=== PATIENT | female | born 1950 | race Hispanic/Latino ===

== ENCOUNTER 2016-12-03 17:30 | Inpatient (IN) | payer MEDICARE ==
[2016-12-03] MEDS ORDERED: MILK OF MAGNESIA PO PRN (18:07)
[2016-12-03] MEDS ORDERED: SENOKOT PO PRN (18:07)
[2016-12-03] MEDS: NAPROSYN PO SCH (21:19)
[2016-12-03] MEDS: PERCOCET 5/325 PO PRN (21:20)
[2016-12-03] MEDS: ASPIRIN PO SCH (21:20)
[2016-12-03] MEDS: BENADRYL PO PRN (22:06)
[2016-12-04 05:27] LABS: Hematocrit 29.3 % (30.3-42.9); Hemoglobin 9.4 gm/dl (10.1-14.3); Mean Corpuscular HGB Conc 32 % (30-34); Mean Corpuscular Hemoglobin 27 pg (28-32); Mean Corpuscular Volume 84 fl (79-97); Platelet Count 440 K/mm3 (140-440); Red Blood Count 3.49 M/mm3 (3.65-5.03); White Blood Count 17.6 K/mm3 (4.5-11.0)
[2016-12-04 05:33] LABS: Alanine Aminotransferase 11 units/L (7-56); Albumin 2.9 g/dL (3.9-5); Alkaline Phosphatase 109 units/L (35-129); BUN/Creatinine Ratio 21.25; Bilirubin,Total 0.6 mg/dL (0.1-1.2); Blood Urea Nitrogen 17 mg/dL (7-17); Calcium 8.7 mg/dL (8.4-10.2); Carbon Dioxide 30 mmol/L (22-30); Glucose 98 mg/dL (65-100); Total Protein 5.9 g/dL (6.3-8.2)
[2016-12-04 05:34] LABS: Chloride 99.7 mmol/L (98-107); Potassium 4.8 mmol/L (3.6-5.0); Sodium 142 mmol/L (137-145)
[2016-12-04 05:35] LABS: Anion Gap 17 mmol/L
[2016-12-04] MEDS: PERCOCET 5/325 PO PRN ×4 (05:54→21:32)
[2016-12-04] MEDS: BENADRYL PO PRN ×3 (05:54→19:28)
[2016-12-04 07:00] LABS: Blastocytes % (Manual) 0 %
[2016-12-04 07:03] LABS: Anisocytosis 1+; Polychromasia Few; Stomatocytes 1+
[2016-12-04 07:04] LABS: Diff Status Complete; Hypersegmented Neutrophils Few
[2016-12-04] MEDS: NAPROSYN PO SCH ×2 (08:46→21:30)
[2016-12-04] MEDS: ASPIRIN PO SCH ×2 (08:47→21:30)
[2016-12-04] MEDS: LASIX PO SCH (08:48)
[2016-12-04] MEDS: PROzac PO SCH (08:48)
--- NOTE | 2016-12-04 10:22 | History and Physical Report ---
History of Present Illness Date: 12/04/16 Referring Facility: [facility] Date of admission: 12/03/16 17:30 Chief Complaint: Right TKA revision History of present illness: POST ADMISSION PHYSICIAN EVALUATION ONSET DATE: 11/26/2016 IMPAIRMENT GROUP CODE: 08.61 ETIOLOGIC DIAGNOSIS: right total knee revision STATUS CHANGES SINCE PREADMISSION SCREENING: PAS has been reviewed. In comparison, pt is with increased pain on this AM as she is actively with PT at time of exam. Pt continues to have functional deficits following TKA; leukocytosis noted on today, however, remains afebrile without any infectious complaints. Pt remains an appropriate candidate for IPR course. PREVIOUS FUNCTIONAL STATUS: Independent with ADLs, gait, transfers CURRENT FUNCTIONAL STATUS: per PAS, s/u to [facility] for ADLs; CGA-SBA for transfers ; CGA for gait with RW; functional updates per PT/OT evaluations to follow HPI 66 y.o. morbidly obese female admitted to [facility] for elective right total knee revision. Pt has a history of fall in March 2016 with progressively worsening pain and instability. Pt failed conservative treatment and was recommended for revision of right TKA. Post-op course significant for acute blood loss anemia and decline in functional independence; uncontrolled pain. Pt is now admitted for aggressive therapies and ongoing medical management. Past History Past Medical History: arthritis, cancer (CML, has refused to continue oral chemo ), hypertension, other (depression) Past Surgical History: hysterectomy, total knee replacement (bilateral), Other ( right annkle ORIF, right arm cyst removal, breast tumor resection) Social history: , lives with family. denies: smoking, alcohol abuse Family history: CAD, cancer Medications and Allergies Allergies Allergy/AdvReac Type Severity Reaction Status Date / Time adhesive tape Allergy Unknown Verified 12/03/16 18:16 latex Allergy Unknown Verified 12/03/16 18:16 morphine Allergy Unknown Verified 12/03/16 18:16 Penicillins Allergy Unknown Verified 12/03/16 18:16 Tetanus Vaccines & Toxoid Allergy Unknown Verified 12/03/16 18:16 Active Meds: Active Medications Aspirin (Aspirin) 325 mg PO BID [facility] Last Admin: 12/04/16 08:47 Dose: 325 mg Diphenhydramine HCl (Benadryl) 12.5 mg PO Q6H PRN PRN Reason: Itching Last Admin: 12/04/16 05:54 Dose: 12.5 mg Fluoxetine HCl (Prozac) 40 mg PO QDAY [facility] Last Admin: 12/04/16 08:48 Dose: 40 mg Furosemide (Lasix) 20 mg PO QDAY [facility] Last Admin: 12/04/16 08:48 Dose: 20 mg Magnesium Hydroxide (Milk Of Magnesia) 30 ml PO Q4H PRN PRN Reason: Constipation Naproxen (Naprosyn) 500 mg PO BID [facility] Last Admin: 12/04/16 08:46 Dose: 500 mg Oxycodone/Acetaminophen (Percocet 5/325) 2 tab PO Q6H PRN PRN Reason: Pain, Moderate (4-6) Last Admin: 12/04/16 05:54 Dose: 2 tab Senna (Senokot) 8.6 mg PO Q12H PRN PRN Reason: Laxative Effect Review of Systems All systems: negative Ears, nose, mouth and throat: no headache Cardiovascular: no chest pain, no lightheadedness Respiratory: shortness of breath (chronic) Gastrointestinal: no nausea, no vomiting, no constipation (last BM 2 days ago) Genitourinary Female: no dysuria, no urgency Musculoskeletal: other (right knee pain) Neurological: no parathesias Exam - Constitutional Vitals: Vital Signs - 12hr 12/03/16 12/03/16 12/04/16 23:00 23:55 08:00 Temperature 98.8 F 98.8 F 97.7 F Pulse Rate [ 86 70 From Monitor] Respiratory 18 18 20 Rate Blood Pressure 164/66 164/66 126/58 [Left Arm] O2 Sat by Pulse 90 90 Oximetry General appearance: mild distress (pain at right knee), obese - EENT Eyes: EOM intact ENT: hearing intact - Neck Neck: supple, normal ROM - Respiratory Respiratory effort: normal Respiratory: bilateral: CTA - Cardiovascular Rhythm: regular Heart Sounds: Present: S1 & S2 - Extremities Extremity abnormal: edema (right LE), other (bárbara in place to right knee; no active bleeding at incision; no redness) - Gastrointestinal General gastrointestinal: Present: soft, non-tender, non-distended, normal bowel sounds - Musculoskeletal Musculoskeletal: right sided weakness (RLE; intact ankle DF/PF; unable to initiate straight leg raise on mat) - Neurologic Neurologic: CNII-XII intact, other (sensation grossly intact) - Psychiatric Psychiatric: appropriate mood/affect, intact judgment & insight, memory intact, cooperative - Allied health notes FIMS assesment as documented by PT/OT/ST: Toileting Toileting FIM Score 5. Supervision Social interaction/Memory/Problem solving Social Interaction FIM Score 6. Modified [place] Memory FIM Score 6. Modified [place] Problem Solving FIM Score 6. Modified [place] Eating Eating FIM Score 7. Complete [place] - Labs CBC & Chem 7: 12/04/16 04:50 12/04/16 04:50 Labs: Laboratory Results - last 72 hr 12/04/16 12/04/16 04:50 04:50 WBC 17.6 H RBC 3.49 L Hgb 9.4 L Hct 29.3 L MCV 84 MCH 27 L MCHC 32 RDW 18.0 H Plt Count 440 Baso % (Auto) Prosthetic Dentist Add Manual Diff Complete Total Counted 100 Seg Neuts % (Manual) 43.0 Band Neutrophils % 19.0 Lymphocytes % (Manual) 16.0 Reactive Lymphs % (Man) 0 Monocytes % (Manual) 5.0 Eosinophils % (Manual) 6.0 H Basophils % (Manual) 3.0 H Metamyelocytes % 4.0 Myelocytes % 1.0 Promyelocytes % 3.0 Blast Cells % 0 Nucleated RBC % Not Reportable Seg Neutrophils # Man 7.6 Band Neutrophils # 3.3 Lymphocytes # (Manual) 2.8 Abs React Lymphs (Man) 0.0 Monocytes # (Manual) 0.9 H Eosinophils # (Manual) 1.1 H Basophils # (Manual) 0.5 H Metamyelocytes # 0.7 Myelocytes # 0.2 Promyelocytes # 0.5 Blast Cells # 0.0 WBC Morphology Not Reportable Hypersegmented Neuts Few Hyposegmented Neuts Not Reportable Hypogranular Neuts Not Reportable Smudge Cells Not Reportable Toxic Granulation Not Reportable Toxic Vacuolation Not Reportable Dohle Bodies Not Reportable Pelger-Huet Anomaly Not Reportable Ari[place] Rods Not Reportable Platelet Estimate Appears normal Clumped Platelets Not Reportable Plt Clumps, EDTA Not Reportable Large Platelets Not Reportable Giant Platelets Not Reportable Platelet Satelliting Not Reportable Plt Morphology Comment Not Reportable RBC Morphology Not Reportable Dimorphic RBCs Not Reportable Polychromasia Few Hypochromasia Not Reportable Poikilocytosis Not Reportable Anisocytosis 1+ Microcytosis Not Reportable Macrocytosis Not Reportable Spherocytes Not Reportable Pappenheimer Bodies Not Reportable Sickle Cells Not Reportable Target Cells Not Reportable Tear Drop Cells Not Reportable Ovalocytes Not Reportable Stomatocytes 1+ Helmet Cells Not Reportable [place] Bodies Not Reportable [place] Rings Not Reportable [place] Cells Not Reportable Bite Cells Not Reportable Crenated Cell Not Reportable Elliptocytes Not Reportable Acanthocytes (Spur) Not Reportable Rouleaux Not Reportable Hemoglobin C Crystals Not Reportable Schistocytes Not Reportable Malaria parasites Not Reportable Steve Bodies Not Reportable Hem Pathologist Commnt No Sodium 142 Potassium 4.8 Chloride 99.7 Carbon Dioxide 30 Anion Gap 17 BUN 17 Creatinine 0.8 Estimated GFR > 60 BUN/Creatinine Ratio 21.25 Glucose 98 Calcium 8.7 Total Bilirubin 0.6 AST 17 ALT 11 Alkaline Phosphatase 109 Total Protein 5.9 L Albumin 2.9 L Albumin/Globulin Ratio 1.0 Assessment and Plan Assessment and plan: 66 y.o. morbidly obese female s/p right TKA revision secondary to failed hardware; post-op anemia and uncontrolled pain; gait instability. The patient is medically stable, however, requires ongoing medical management. Pt is appropriate for inpatient rehabilitation admission and is thought to be able to tolerate at least 3 hours of therapy a day, 5 days a week including 1.5 hours of physical therapy and 1.5 hours of occupational therapy. Patient is able to understand and follow basic directions and has attainable rehab goals. Potential barriers/complications include infection, wound dehiscence, DVT, PE, falls, respiratory distress, hypotension, syncope. Plan 1. Rehabilitation- Pt will undergo multidisciplinary/integrative rehab PT/OT, Nursing. Areas to be addressed include, but are not limited to PT for mobility , strengthening, transfer training, ROM, endurance, stairs, balance; OT for ADLs , household tasks, adaptive equipment; Nursing for carryover of therapies, pain control, education, skin integrity, medication management, bowel/bladder management; Nutrition as needed; procurement services manager for discharge planning and equipment needs. Potential interventions include appropriate assistive device or adaptive equipment. Expected overall level of functional improvement by discharge is [facility] for ADLs, transfers, and gait. Pt will tentatively be discharged home with outpatient PT. Estimated length of stay is 7-10 days. 2. s/p right TKA revision- pain med interval modified to Q4 from Q6; continue to follow; aggressive PT/OT for ROM, strengthening, gait/balance training, self cares; Knee immobilizer when out of bed 3. acute blood loss anemia- follow 4. leukocytosis- follow; check UA, C&S; no signs/symptoms of active infection at incision line; pt is afebrile 5. CML- aware; on chronic oxygen 6. depression- Continue prozac 7. DVT px- ASA BID as per Ortho - Patient Problems (1) Failed total right knee replacement Current Visit: Yes Status: Acute Qualifiers: Encounter type: initial encounter Qualified Code(s): T84.012A - Broken internal right knee prosthesis, initial encounter (2) Status post revision of total replacement of right knee Current Visit: Yes Status: Acute (3) Acute blood loss anemia Current Visit: Yes Status: Acute (4) Unsteady gait Current Visit: Yes Status: Acute (5) CML (chronic myelocytic leukemia) Current Visit: Yes Status: Acute (6) Depression Current Visit: Yes Status: Acute Qualifiers: Depression Type: major depressive disorder Major depression recurrence: single episode Active/Remission status: currently active Psychotic features : without psychotic features
[2016-12-04 18:03] LABS: Bilirubin,Urine NEG (Negative); Blood,Urine NEG (Negative); Ketones,Urine NEG (Negative); Leukocyte Esterase,Urine NEG (Negative); Nitrite,Urine POS (Negative); Protein,Urine <15 mg/dL mg/dL (Negative); Urobilinogen,Urine < 2.0 mg/dL (<2.0)
[2016-12-04 18:13] LABS: RBC,Urine < 1.0 /HPF (0.0-6.0)
[2016-12-05] MEDS: PROzac PO SCH (09:50)
[2016-12-05] MEDS: ASPIRIN PO SCH ×2 (09:50→21:38)
[2016-12-05] MEDS: NAPROSYN PO SCH ×2 (09:50→21:38)
[2016-12-05] MEDS: PERCOCET 5/325 PO PRN ×3 (09:51→20:04)
[2016-12-05] MEDS: LASIX PO SCH (09:53)
[2016-12-05] MEDS: BENADRYL PO PRN ×2 (09:56→20:05)
--- NOTE | 2016-12-05 13:55 | IRU Plan of Care ---
Interdisciplinary Plan of Care - IP IRU INTERDISCIPLINARY PLAN: [facility] Inpatient Rehab Unit Plan of Care IRU Interdisciplinary Care Plan Start: 12/03/16 18: 21 Freq: Admission then PRN Status: Active Document 12/04/16 18:16 DB (Rec: 12/04/16 18:22 DB [id number]) Interdisciplinary Problem List Interdisciplinary Problem List Interdisciplinary Problem List Impaired Bathing/Grooming Query Text:Answers will Trigger Problems Impaired Dressing and Outcomes on Worklist. Impaired Mobility Impaired Transfers Impaired Toileting Impaired Nutrition Pain Management Knowledge Deficits Impaired Skin/Tissue Integrity Impaired Home Management Impaired Safety Medications Education Impaired Oxygenation IRU Interdisciplinary Care Plan Therapy Services Therapy Services Will Include: Physical Therapy Query Text:Patient will be seen for a Occupational Therapy minimum of 3 hours of daily therapy 5 out of 7 days a week. Therapy intensity may be adjusted within a 7 consecutive day period to effectively serve the individual needs of the patient. Treatment Frequency/Intensity/Duration Treatment Frequency 5 days per week Treatment Intensity 1.5 hours per discipline (PT/OT ) daily Treatment Duration 7-10 days Problem Area: Eating/Swallowing Eating/Swallowing Outcomes Eating/Swallowing Interventions Problem Area: Bathing/Grooming Bathing/Grooming Outcomes Improve [place] w/ Grooming Improve [place] w/ Bathing Bathing/Grooming Interventions ADL Training Balance Work Activity Tolerance Work Patient/Caregiver Education Problem Area: Dressing Dressing Outcomes Improve [place] w/ UB Dressing Improve [place] w/ LB Dressing Dressing Interventions ADL Training Therapeutic Exercise Balance Work Patient/Caregiver Education Problem Area: Mobility Mobility Outcomes Improve [place] w/ Bed Mobility Improve [place] w/ Ambulation Improve [place] w/ Stairs /Curb Improve [place] w/ Wheelchair Mobility Interventions Therapeutic Exercise Neuromuscular Re-Ed. Use of Assistive Devices Patient/Caregiver Education Bed Mobility Work Gait Training W/C Mobility Work Problem Area: Transfers Transfers Outcomes Improve [place] w/ Bed Transfers Improve [place] w/ Toilet Transfers Improve [place] w/ Tub/ Shower Transfers Improve [place] w/ Car Transfers Transfers Interventions Transfer Training Therapeutic Exercise Neuromuscular Re-Education Use of Assistive Devices Patient/Caregiver Education Problem Area: Bowel/Bladder Managment Bowel/Bladder Outcomes Bowel/Bladder Interventions Problem Area: Toileting Toileting Outcomes Improve [place] w/ Toileting Toileting Interventions ADL Training Balance Work Patient/Caregiver Education Problem Area: Nutrition Nutrition Outcomes Understand and Comply w/ Diet Improve/Maintain Oral Intake Improve/Maintain Weight Status Nutrition Interventions Nutritional Counseling Monitor Nutrient Intake Patient/Caregiver Education Problem Area: Comprehension Comprehension Outcomes Comprehension Interventions Problem Area: Expression Expression Outcomes Expression Interventions Problem Area: Problem Solving Problem Solving Outcomes Problem Solving Interventions Problem Area: Memory Memory Outcomes Memory Interventions Problem Area: Pain Management Pain Management Outcomes Demonstrate/Verbalize Pain Strategies Pain Management Interventions Medication Management Use of Devices/Modalities ( TENS, hot pack, cold pack, etc .) Positioning/Turning Patient/Caregiver Education Problem Area: Knowledge Deficits Knowledge Deficits Outcomes Verbalize Precautions Knowledge Deficits Interventions Medication Use Education Disease Management Education Health Maintainence Education Safety Education Problem Area: Skin/Tissue Integrity Skin/Tissue Integrity Outcomes Exhibit Healing of Wound/ Incision Demonstrate Understanding of Pressure Relief Skin/Tissue Integrity Interventions Skin/Wound Care Pressure Relief Instruction Positioning/Turning Problem Area: Social Interaction Social Interaction Outcomes Social Interaction Interventions Problem Area: Adjustment to Disability Adjustment to Disability Outcomes Adjustment to Disability Interventions Problem Area: Discharge Concerns Discharge Concerns Outcomes Discharge Home w/ Necessary Equipment Have Home Health/Outpatient Services Discharge Concerns Interventions Discharge Planning Family/Caregiver Conference Family/Caregiver Training Problem Area: Community Reintegration Community Reintegration Outcomes Demonstrate Understanding of Community Resources Community Reintegration Interventions Provide Community Resources Problem Area: Home Management Home Management Outcomes Improve [place] w/ Home Management Home Management Interventions Meal Preparation Clothing Care Activity Tolerance Work House Cleaning Patient/Caregiver Education Problem Area: Safety Safety Outcomes Demonstrate Good Safety w/ Transfers/Mobility Safety Interventions Identify Fall Risk Reduce Environmental Hazards Re-Educate Patient/Caregiver for Safety (Post Fall Update) Problem Area: Medication Education Medication Education Outcomes Patient/Caregiver will Verbalize Understanding of Medications Medication Education Interventions Explain Administration/Side Effects/Interactions Problem Area: Diabetes Education Diabetes Education Outcomes Diabetes Education Interventions Problem Area: Oxygenation Oxygenation Outcomes Maintain Adequate Oxygenation Oxygenation Interventions Assess Respiratory Status Encourage Coughing and Deep Breathing Elevate Head of Bed Problem Area: Cardiovascular Cardiovascular Outcomes Cardiovascular Interventions Physician Only Medical Prognosis and Rehabilitation Patient demonstrates good Potential (Completed by Physician) rehab potential. Medical Prognosis: Good This plan of care has been developed based on the findings from the pre- admission assessment, post admission physician evaluation, information gathered from the assessments from all therapy disciplines and other pertinent clinicians. The plan of care has been reviewed and discussed in collaboration with the interdisciplinary team. The plan of care will be reviewed and updated at least weekly. 66 y.o. morbidly obese female s/p right TKA revision secondary to failed hardware; post-op anemia and uncontrolled pain; gait instability. The patient remains at risk for infection, wound dehiscence, DVT, PE, falls, respiratory distress, hypotension, syncope. Screening UA negative; F/U urine culture; remains afebrile. Pt is tolerating therapies; continue aggressive pain control , meds adjusted on yesterday. Pt remains an appropriate candidate for IPR course.
[2016-12-06] MEDS: LASIX PO SCH (09:13)
[2016-12-06] MEDS: NAPROSYN PO SCH ×2 (09:13→21:12)
[2016-12-06] MEDS: PROzac PO SCH (09:13)
[2016-12-06] MEDS: PERCOCET 5/325 PO PRN ×3 (09:14→23:58)
[2016-12-06] MEDS: ASPIRIN PO SCH ×2 (09:14→21:12)
[2016-12-06] MEDS: BENADRYL PO PRN ×2 (17:20→23:59)
[2016-12-07 04:29] LABS: Hematocrit 31.5 % (30.3-42.9); Mean Corpuscular HGB Conc 32 % (30-34); Mean Corpuscular Hemoglobin 27 pg (28-32); Mean Corpuscular Volume 84 fl (79-97); Platelet Count 579 K/mm3 (140-440); Red Blood Count 3.76 M/mm3 (3.65-5.03); Red Cell Distribution Width 18.4 % (13.2-15.2)
[2016-12-07 04:31] LABS: White Blood Count 23.4 K/mm3 (4.5-11.0)
[2016-12-07] MEDS: ASPIRIN PO SCH ×2 (08:32→22:06)
[2016-12-07] MEDS: PROzac PO SCH (08:32)
[2016-12-07] MEDS: LASIX PO SCH (08:32)
[2016-12-07] MEDS: NAPROSYN PO SCH ×2 (08:33→22:06)
[2016-12-07] MEDS: PERCOCET 5/325 PO PRN ×3 (08:33→22:07)
--- NOTE | 2016-12-07 13:03 | Progress Note ---
Assessment and Plan 66 y.o. morbidly obese female s/p right TKA revision secondary to failed hardware - s/p right TKA revision- improved pain control; tolerating therapies well; Knee immobilizer when out of bed - unsteady gait- much improved since admission; ambulated only 60 feet at [facility] on admission, now supervision over 300 feet; likely improved due to better pain control - acute blood loss anemia- improved - leukocytosis- GN UTI; start Bactrim, follow for ID/Sens; afebrile - CML- aware; on chronic oxygen - DVT px- ASA BID as per Ortho - Patient Problems (1) Failed total right knee replacement Current Visit: Yes Status: Acute Qualifiers: Encounter type: initial encounter Qualified Code(s): T84.012A - Broken internal right knee prosthesis, initial encounter (2) Status post revision of total replacement of right knee Current Visit: Yes Status: Acute (3) Acute blood loss anemia Current Visit: Yes Status: Acute (4) Unsteady gait Current Visit: Yes Status: Acute (5) CML (chronic myelocytic leukemia) Current Visit: Yes Status: Acute Subjective Date of service: 12/07/16 Principal diagnosis: right TKA revision Interval history: Pt seen in room this AM, F/U IPR course, s/p right TKA revision. Pt reports improved pain control over weekend. Urine culture with +GN rods; pt reports history of frequent UTIs, has taken Bactrim in past; +BM Objective - Constitutional Vitals: Vital Signs - 12hr 12/07/16 12/07/16 12/07/16 07:19 08:10 08:33 Temperature 97.7 F Pulse Rate [ 80 Left Brachial] Respiratory 22 22 Rate Respiratory Rate [Right Knee] Blood Pressure 139/65 [Left Arm] O2 Sat by Pulse 93 93 Oximetry 12/07/16 12/07/16 12/07/16 09:00 09:33 09:35 Temperature Pulse Rate [ Left Brachial] Respiratory 20 Rate Respiratory 20 Rate [Right Knee] Blood Pressure [Left Arm] O2 Sat by Pulse 93 Oximetry General appearance: Present: no acute distress, obese - EENT Eyes: EOM intact ENT: hearing intact - Neck Neck: supple, normal ROM - Respiratory Respiratory effort: normal Respiratory: bilateral: CTA - Cardiovascular Rhythm: regular Heart Sounds: Present: S1 & S2 Extremity abnormal: other (bárbara in place to right knee incision; minimal bloody drainage noted) - Gastrointestinal General gastrointestinal: Present: soft, normal bowel sounds - Neurologic Neurologic: CNII-XII intact, moves all extremities - Psychiatric Psychiatric: appropriate mood/affect, intact judgment & insight, memory intact, cooperative - Allied health notes Allied health notes reviewed: PT (supervision with gait >300 feet), OT ( supervision with transfers) - Labs CBC & Chem 7: 12/07/16 04:15 12/04/16 04:50 Labs: Abnormal lab results 12/07/16 Range/Units 04:15 WBC 23.4 H (4.5-11.0) K/mm3 Hgb 10.0 L (10.1-14.3) gm/dl MCH 27 L (28-32) pg RDW 18.4 H (13.2-15.2) % Plt Count 579 H (140-440) K/mm3
[2016-12-07] MEDS: BACTRIM DS PO SCH ×2 (13:09→22:06)
[2016-12-07] MEDS: BENADRYL PO PRN ×2 (13:09→22:07)
[2016-12-08] MEDS: NAPROSYN PO SCH ×2 (07:57→21:10)
[2016-12-08] MEDS: ASPIRIN PO SCH ×2 (07:57→21:10)
[2016-12-08] MEDS: PROzac PO SCH (07:57)
[2016-12-08] MEDS: LASIX PO SCH (07:57)
[2016-12-08] MEDS: PERCOCET 5/325 PO PRN ×2 (10:19→20:24)
[2016-12-08] MEDS: BENADRYL PO PRN ×2 (10:20→20:23)
--- NOTE | 2016-12-08 14:33 | Progress Note ---
Assessment and Plan 66 y.o. morbidly obese female s/p right TKA revision secondary to failed hardware - s/p right TKA revision- POD #12; tolerating therapies well - unsteady gait- continues to improve daily; now ambulating at [facility] - E. Coli UTI- resistant to Bactrim; changed to MacroBid this AM - CML- aware; on chronic oxygen - DVT px- ASA BID as per Ortho - team conference held this AM- pt is Independent for eating; [facility] for transfers , gait, stairs and remaining ADLs, except supervision for LB dressing and shower transfers; ambulating 340 feet with RW. Barriers to discharge- none. Plan to d/c home on tomorrow afternoon following therapies. - Patient Problems (1) Failed total right knee replacement Current Visit: Yes Status: Acute Qualifiers: Encounter type: initial encounter Qualified Code(s): T84.012A - Broken internal right knee prosthesis, initial encounter (2) Status post revision of total replacement of right knee Current Visit: Yes Status: Acute (3) Acute blood loss anemia Current Visit: Yes Status: Acute (4) Unsteady gait Current Visit: Yes Status: Acute (5) CML (chronic myelocytic leukemia) Current Visit: Yes Status: Acute (6) E. coli UTI Current Visit: Yes Status: Acute Subjective Date of service: 12/08/16 Principal diagnosis: right TKA revision Interval history: Pt seen in PT this AM, F/U IPR course, s/p right TKA revision. Pt is progressing very well with therapies; pain is improved, worsened following therapies as expected. Educated concerning need to change oral ABX due to resistance to Bactrim Objective - Constitutional Vitals: Vital Signs - 12hr 12/08/16 12/08/16 08:20 10:00 Temperature 98.1 F Pulse Rate [ 64 Left Brachial] Respiratory 20 Rate Blood Pressure 132/61 [Left Arm] O2 Sat by Pulse 97 94 Oximetry General appearance: Present: no acute distress, obese, other (sitting on edge of mat with PT) - EENT Eyes: EOM intact ENT: hearing intact - Neck Neck: supple, normal ROM - Respiratory Respiratory effort: normal Extremity abnormal: edema (stable) - Neurologic Neurologic: CNII-XII intact, moves all extremities - Psychiatric Psychiatric: appropriate mood/affect, intact judgment & insight, memory intact, cooperative - Labs CBC & Chem 7: 12/07/16 04:15 12/04/16 04:50
[2016-12-08] MEDS: MACROBID PO SCH ×2 (14:59→21:10)
[2016-12-09] MEDS: NAPROSYN PO SCH (08:08)
[2016-12-09] MEDS: PROzac PO SCH (08:08)
[2016-12-09] MEDS: ASPIRIN PO SCH (08:09)
[2016-12-09] MEDS: LASIX PO SCH (08:46)
[2016-12-09] MEDS: MACROBID PO SCH (09:08)
[2016-12-09] MEDS: PERCOCET 5/325 PO PRN (09:08)
[2016-12-09] MEDS: BENADRYL PO PRN (09:08)
[2016-12-09 09:18] VITALS: BP 161/78
--- NOTE | 2016-12-09 12:01 | Discharge Summary ---
Providers - Providers Date of Admission: 12/03/16 17:30 Date of discharge: 12/09/16 Attending physician: TIFFANY BOOKER 12/03/16 18:07 Occupational Therapy Evaluate and Treat [CONS] Routine Comment: Reason For Exam: s/p TKA Physical Therapy Evaluation and Treat [CONS] Routine Comment: Reason For Exam: s/p TKA Primary care physician: CLEMENT DUMONT Hospitalization Reason for admission: right TKA revision Condition: Stable Hospital course: 66 y.o. morbidly obese female admitted to [facility] for elective right total knee revision after fall and failed conservative treatment. Post-op course significant for acute blood loss anemia and decline in functional independence; uncontrolled pain. Once stable, pt was admitted for aggressive therapies and ongoing medical management. IPR course significant for E. Coli UTI, resistant to Bactrim; modified to Macrobid. Pain was stable throughout course and pt showed very good functional progress. On admission, pt required Nohemy/CGA for bed mobility, transfers, and gait; ambulating 60 feet with a RW; Independent to modA for ADLs. At the time of discharge, pt has progressed to Independent to [place] for all self cares and mobility, except supervision with LB dressing and shower transfers. Pt is stable for d/c home on today; will need to F/U with Ortho for staple removal and post-op exam. Disposition: DISCHARGED TO HOME OR SELFCARE - Discharge Diagnoses (1) Failed total right knee replacement Status: Acute Qualifiers: Encounter type: initial encounter Qualified Code(s): T84.012A - Broken internal right knee prosthesis, initial encounter (2) Status post revision of total replacement of right knee Status: Acute (3) Acute blood loss anemia Status: Acute (4) Unsteady gait Status: Acute (5) CML (chronic myelocytic leukemia) Status: Acute (6) E. coli UTI Status: Acute Core Measure Documentation - Palliative Care Palliative Care/ Comfort Measures: Not Applicable - Core Measures Any of the following diagnoses?: none Exam - Constitutional Vitals: Temp Pulse Resp BP Pulse Ox 98.3 F 72 20 161/78 98 12/09/16 07:30 12/09/16 07:30 12/09/16 07:30 12/09/16 07:30 12/09/16 09:32 General appearance: Present: no acute distress, obese - EENT Eyes: Present: EOM intact ENT: hearing intact - Neck Neck: Present: supple, normal ROM - Respiratory Respiratory effort: normal - Abdominal General gastrointestinal: Present: soft, non-distended, normal bowel sounds - Psychiatric Psychiatric: appropriate mood/affect, intact judgment & insight, memory intact, cooperative - Neurologic Neurologic: CNII-XII intact, moves all extremities Plan Activity: no driving until cleared by PCP, fall precautions Weight Bearing Status: Weight Bear as Tolerated Diet: regular Wound: keep clean and dry Special Instructions: physical therapy ([facility] [place]) Durable Medical Equipment Needed Upon Discharge: other (Bariatric Rollator- [facility]) Additional Instructions: Dr. Floyd Rucker, first available for staple removal, Ortho Follow up with: CLEMENT DUMONT MD [Primary Care Provider] - 7 Days Prescriptions: Aspirin [Aspirin TAB] 325 mg PO BID #60 [address]itro[address]antoin [place]/M-Cryst [Macrobid CAP] 100 mg PO Q12HR #11 capsule
== END 2016-12-09 13:18 | disposition home or self-care (01) | DRG 560 ==
LOC: 3B 17:30
PROVIDERS: ADMIT Family Medicine; ATTEND Family Medicine
DX: T84.012A Broken internal right knee prosthesis, initial encounter (principal); Z68.42 Body mass index [BMI] 45.0-49.9, adult; D62 Acute posthemorrhagic anemia; C92.10 Chronic myeloid leukemia, BCR/ABL-positive, not having achieved remission; N39.0 Urinary tract infection, site not specified; B96.20 Unspecified Escherichia coli [E. coli] as the cause of diseases classified elsewhere; E66.01 Morbid (severe) obesity due to excess calories; M19.90 Unspecified osteoarthritis, unspecified site; I10 Essential (primary) hypertension; F32.9 Major depressive disorder, single episode, unspecified; Z96.653 Presence of artificial knee joint, bilateral; R26.81 Unsteadiness on feet; Z90.710 Acquired absence of both cervix and uterus; Z98.890 Other specified postprocedural states; Z88.5 Allergy status to narcotic agent; Z88.0 Allergy status to penicillin; Z88.7 Allergy status to serum and vaccine; Z91.040 Latex allergy status; Z87.440 Personal history of urinary (tract) infections; Z91.048 Other nonmedicinal substance allergy status; Z82.49 Family history of ischemic heart disease and other diseases of the circulatory system; Z80.9 Family history of malignant neoplasm, unspecified
CPT/HCPCS: 36415; 80053; 81001; 85007; 85025; 85027; 87076; 87086; 87186; 94760; Q0163

== ENCOUNTER 2017-12-07 09:25 | Emergency (ER) | payer MEDICARE ==
[2017-12-07] MEDS ORDERED: ZOFRAN IV ONE (12:48)
[2017-12-07] MEDS ORDERED: DILAUDID IV ONE ×2 (12:48→14:38)
[2017-12-07 12:55] LABS: Hematocrit 49.7 % (30.3-42.9); Mean Corpuscular HGB Conc 32 % (30-34); Mean Corpuscular Hemoglobin 28 pg (28-32); Mean Corpuscular Volume 86 fl (79-97); Platelet Count 350 K/mm3 (140-440); Red Blood Count 5.79 M/mm3 (3.65-5.03); Red Cell Distribution Width 18.2 % (13.2-15.2)
[2017-12-07] MEDS ORDERED: DILAUDID ONE ×2 (13:07→14:55)
[2017-12-07 13:14] LABS: Alanine Aminotransferase 13 units/L (7-56); Albumin 4.1 g/dL (3.9-5); BUN/Creatinine Ratio 31; Blood Urea Nitrogen 22 mg/dL (7-17); Calcium 9.2 mg/dL (8.4-10.2); Hemolysis Index 25
[2017-12-07 13:25] LABS: INR 0.98 (0.87-1.13)
[2017-12-07 13:26] LABS: Partial Thromboplastin Time 27.6 Sec. (24.2-36.6)
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
[2017-12-07 14:11] LABS: Basophils % (Manual) 0 % (0.0-1.8); Eosinophils % (Manual) 0 % (0.0-4.3); Platelet Estimate Consistent w Auto; RBC Morphology Normal; Total Cells Counted 100
--- NOTE | 2017-12-07 14:31 | XRay Report ---
LEFT HIP, 2 views: History: Left hip pain after fall. The bony architecture is intact without evidence of fracture or dislocation. No significant soft tissue abnormality is seen. IMPRESSION: Unremarkable left hip.
--- NOTE | 2017-12-07 14:31 | XRay Report ---
LEFT ELBOW, 3 views: History: left elbow pain. The bony architecture is intact without evidence of fracture or dislocation. No significant soft tissue abnormality is seen. IMPRESSION: Unremarkable left elbow.
--- NOTE | 2017-12-07 14:32 | XRay Report ---
LEFT KNEE, 2 views: History: Left knee pain after fall Previous left knee replacement changes are noted. The hardware is well applied. No fracture or malalignment is appreciated. The soft tissues are unremarkable. IMPRESSION: No evidence for acute injury to the left knee.
--- NOTE | 2017-12-07 14:34 | XRay Report ---
LEFT ANKLE, 3 views: LEFT FOOT, 3 views: History: left ankle and foot pain. An oblique, slightly comminuted fracture is identified in the distal fibula just proximal to the ankle joint. The distal tibia is intact. There is lateral subluxation of the talus with widening of the medial ankle mortise. The bones of the left foot are intact. There are moderate degenerative changes in the mid foot and first metatarsal phalangeal joint. IMPRESSION: Oblique fracture of the distal fibula with lateral subluxation of the talus estimated at 4-5 mm. Osteoarthritis.
[2017-12-07] MEDS ORDERED: SUBLIMAZE ONE (15:02)
[2017-12-07] MEDS ORDERED: SUBLIMAZE IV ONE (15:19)
[2017-12-07 15:51] VITALS: BP 142/65
--- NOTE | 2017-12-07 18:20 | XRay Report ---
FINAL REPORT PROCEDURE: Two-view left ankle series TECHNIQUE: LEFT ankle radiographs, AP and lateral views. HISTORY: post reduction splint placement COMPARISON: No prior studies are available for comparison. FINDINGS: There is artifact from casting material overlying the ankle. There is a mildly displaced mildly comminuted fracture of the distal fibula. There is widening of the medial aspect of the ankle mortise suggesting deltoid ligament disruption. Talar dome appears intact. Diffuse soft tissue swelling seen medially and laterally. No calcaneal spurs are identified. There is moderate osteoarthritic change at the cuneiform metatarsal articulations. IMPRESSION: Mildly comminuted mildly displaced fracture of the distal fibula visualized. There is also widening of the medial aspect of the ankle mortise suggesting disruption of the deltoid ligament. Diffuse soft tissue swelling present. Osteoarthritis as described.
== END 2017-12-07 16:30 ==
LOC: ED 09:25
DX: S51.032A Puncture wound without foreign body of left elbow, initial encounter (principal); S82.832S Other fracture of upper and lower end of left fibula, sequela; S50.312A Abrasion of left elbow, initial encounter; W18.30XA Fall on same level, unspecified, initial encounter; Y93.89 Activity, other specified; Y92.89 Other specified places as the place of occurrence of the external cause; Y99.8 Other external cause status
CPT/HCPCS: 12001; 29515; 36415; 73080; 73502; 73560; 73600; 73610; 73620; 80053; 82550; 85007; 85025; 85610; 85730; 96374; 96375; 96376; 99284; J1170; J2405; J3010